=== PATIENT | female | born 1980 | race Caucasian/White ===

== ENCOUNTER → 2017-10-18 | Outpatient (CLI) | payer OTHER ==
[~2017-10-18] MED LIST: CETI10CA PO; ETHI1TAB PO; HYDR-3240 PO; IBUP200T49 PO; TRAM50TA2 PO
== END ==
LOC: STAR 08:36
PROVIDERS: ATTEND Specialist
DX: Z02.9 Encounter for administrative examinations, unspecified (principal)

== ENCOUNTER 2017-10-26 05:51 | Day surgery (SDC) | payer OTHER ==
[~2017-10-26] VITALS: Ht 170.2 cm; Wt 70.2 kg
[2017-10-26] MEDS ORDERED: LACTATED RINGERS 1,000 ML IV SCH (06:20)
[2017-10-26] MEDS ORDERED: BUPIVACAINE/PF 0.25% ONE (07:00)
[2017-10-26] MEDS ORDERED: INDIGO CARMINE 0.8%, 5ML ONE (07:01)
[2017-10-26] MEDS ORDERED: THROMBIN 5,000 UNIT VIAL TP ONE (07:01)
[2017-10-26] MEDS ORDERED: NEOMY/POLYMYXIN B GU IRR. 1 ML IRRIG ONE (07:01)
[2017-10-26] MEDS ORDERED: FLUORESCEIN SODIUM 500 MG/5 ML ONE (07:02)
[2017-10-26 07:11] LABS: HCG UR SG 1.015 (1.003-1.030)
[2017-10-26] MEDS ORDERED: FENTANYL PF 250 MCG/5ML ONE (07:20)
[2017-10-26] MEDS ORDERED: MIDAZOLAM 1 MG/ML, 2ML ONE (07:20)
[2017-10-26] MEDS ORDERED: GABAPENTIN 300 MG CAPSULE ONE (07:25)
[2017-10-26] MEDS ORDERED: SCOPOLAMINE PATCH, 1.5MG PATCH.TD72 TD ONE ×2 (07:25→07:30)
[2017-10-26] MEDS ORDERED: OxyconTIN ER 20 MG TAB.ER ONE (07:26)
[2017-10-26] MEDS ORDERED: ACETAMINOPHEN 500 MG TABLET ONE (07:27)
[2017-10-26] MEDS ORDERED: GABAPENTIN 300 MG CAPSULE PO ONE (07:30)
[2017-10-26] MEDS ORDERED: OxyconTIN ER 20 MG TAB.ER PO ONE (07:30)
[2017-10-26] MEDS ORDERED: ACETAMINOPHEN 500 MG TABLET PO ONE (07:30)
[2017-10-26] MEDS ORDERED: PROPOFOL 10 MG/ML, 20ML ONE (07:37)
[2017-10-26] MEDS ORDERED: GLYCOPYRROLATE 0.2MG/1ML, 5ML ONE (07:37)
[2017-10-26] MEDS ORDERED: ROCURONIUM 10 MG/ML,10ML ONE (07:37)
[2017-10-26] MEDS ORDERED: NEOSTIGMINE 1 MG/ML, 10ML ONE (07:37)
[2017-10-26] MEDS ORDERED: CEFAZOLIN 1,000 MG ONE (07:37)
[2017-10-26] MEDS ORDERED: DEXAMETHASONE 4 MG/ML, 1ML ONE (07:37)
[2017-10-26] MEDS ORDERED: ONDANSETRON 2MG/ML, 2ML ONE (07:37)
[2017-10-26] MEDS ORDERED: HYDROcodone/APAP 7.5-325MG/15ML UDC PO PRN (08:00)
[2017-10-26] MEDS ORDERED: ALBUTEROL SULFATE 2.5 MG/3 ML NPPB PRN (08:00)
[2017-10-26] MEDS ORDERED: PROMETHAZINE 12.5 MG SUPP PR PRN (08:00)
[2017-10-26] MEDS ORDERED: hydrALAzine 20 MG/ML, 1ML IV PRN (08:00)
[2017-10-26] MEDS ORDERED: PROMETHAZINE 25 MG/ML, 1ML IV PRN (08:00)
[2017-10-26] MEDS ORDERED: MIDAZOLAM 1 MG/ML, 2ML IV PRN (08:00)
[2017-10-26] MEDS ORDERED: MEPERIDINE/PF 25MG/0.5ML IVPush PRN (08:00)
[2017-10-26] MEDS ORDERED: morphine SULFATE 10 MG/ML, 1ML IV PRN (08:00)
[2017-10-26] MEDS ORDERED: LABETALOL 5MG/ML, 20ML IV PRN (08:00)
[2017-10-26] MEDS ORDERED: FENTANYL PF 100 MCG/2ML ONE (09:51)
[2017-10-26] MEDS: FENTANYL PF 100 MCG/2ML IV PRN ×2 (09:53→10:00)
[2017-10-26] MEDS ORDERED: HYDROmorphone 2 MG/ML, 1ML ONE (10:21)
[2017-10-26] MEDS: HYDROmorphone 1 MG/ML, 1ML IV PRN ×3 (10:22→10:40)
== END 2017-10-26 14:40 ==
LOC: OUT 05:51
PROVIDERS: ATTEND Specialist
DX: N94.6 Dysmenorrhea, unspecified (principal); N94.10 Unspecified dyspareunia; N80.3 Endometriosis of pelvic peritoneum; D64.9 Anemia, unspecified
CPT/HCPCS: 58571; 81025; 88305; 88307; J0690; J1100; J1170; J2250; J2405; J2704; J2710; J3010; J3490; J7120; S2900